=== PATIENT | female | born 1990 | race Caucasian/White ===

== ENCOUNTER 2024-09-18 00:13 | Emergency (ER) | payer MEDICAID ==
[2024-09-18] MEDS ORDERED: Adenocard IV 6 MG/2 ML IV ONE (00:31)
[2024-09-18 00:33] VITALS: TEMP 98.2
[2024-09-18] MEDS ORDERED: Sodium Chloride 0.9% 1000 ML 1,000 ML ONE (00:37)
[2024-09-18] MEDS: Sodium Chloride 0.9% 1000 ML 1,000 ML IV SCH (01:04)
[2024-09-18 01:13] LABS: Absolute Neutrophil Ct (ANC) 7.77 x10^3/uL (1.56-6.13); BASOPHIL % 0.9 % (0.1-1.2); Basophil (Absolute #) 0.12 x10^3/uL (0.01-0.08); Eosinophil % 4.3 % (0.7-5.8); Eosinophil (Absolute #) 0.58 x10^3/uL (0.04-0.36); Hematocrit 39.8 % (34.1-44.9); Hemoglobin 12.9 g/dL (11.2-15.7); IMMATURE GRAN # 0.04 x10^3u/L (0.001-0.031); IMMATURE GRAN % 0.3 % (0.001-0.429); Lymphocyte (Absolute #) 3.84 x10^3/uL (1.18-3.74); Lymphocytes % 28.4 % (19.3-51.7); Mean Cell Volume 87.5 fL (79.4-94.8); Mean Corpuscular Hemoglobin 28.4 pg (25.6-32.2); Mean Corpuscular Hgb Concent. 32.4 g/dL (32.2-35.5); Mean Platelet Volume 9.1 fL (9.4-12.3); Monocyte (Absolute #) 1.19 x10^3/uL (0.24-0.86); Monocytes % 8.8 % (4.7-12.5); Neutrophil % 57.3 % (34.0-71.1); Platelet Count 502 x10^3/uL (182-369); Red Blood Count 4.55 x10^6/uL (3.93-5.22); Red Cell Distribution Width 13.5 % (11.7-14.4); White Blood Count 13.5 x10^3/uL (3.98-10.04)
--- NOTE | 2024-09-18 01:34 | ERPHSYRPT ---
- History of Present Illness Time Seen by Provider: 09/18/24 00:25 Source: patient, family Exam Limitations: no limitations Patient Subjective Stated Complaint: C/O SVT Triage Nursing Assessment: Patient brought back to ER in a W/C. She is alert and oriented. NO SOB. Skin tone normal. Physician History: This is a 34-year-old white female patient who was brought back to the emergency department in a wheelchair. Patient arrives to the emergency department by private vehicle secondary to rapid palpitations. Patient has a history of SVT and it feels similar to her prior episodes. Patient takes verapamil 180 mg sust ained-release medication. However, she forgot to take her dose earlier today. This means that she last took her medications nearly 48 hours ago. The onset of symptoms came on relatively rapidly about 30 minutes prior to arrival. Once she sense rapid heart rate, she then took her medication. She usually takes her medication in the morning. Patient denies chest pain and she denies shortness of breath. Patient is not taking any new medications. Patient moved back to this area approximately 6 months ago and she sees a nurse practitioner as her primary care provider in [facility]. 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 The patient states she has not had an SVT breakthrough in at ast 3 years since she started on the verapamil. Timing/Duration: today Activities at Onset: none Severity of Pain-Max: none Severity of Pain-Current: none Nitro Today/Relief: no nitro taken today Aspirin Treatment Today: no aspirin today Associated Symptoms: No shortness of breath, No chest pain Prior Chest Pain/Cardiac Workup: no prior cardiac workup Allergies/Adverse Reactions: latex Adverse Reaction (Mild, Verified 09/18/24 00:21) Home Medications: Verapamil HCl Sr [Isoptin Sr] 180 mg DAILY 04/14/14 [History] Hx Tetanus, Diphtheria Vaccination/Date Given: Yes Hx Influenza Vaccination/Date Given: No Hx Pneumococcal Vaccination/Date Given: No Immunizations Up to Date: Yes Travel Risk - International Travel Have you traveled outside of the country in past 3 weeks: No - Emerging Infectious Disease Are you exhibiting symptoms associated with any current EIDs: No - Review of Systems Constitutional: No Symptoms Eyes: No Symptoms Ears, Nose, & Throat: No Symptoms Respiratory: No Symptoms Cardiac: Palpitations Abdominal/Gastrointestinal: No Symptoms Genitourinary Symptoms: No Symptoms Musculoskeletal: No Symptoms Skin: No Symptoms Neurological: No Symptoms Psychological: No Symptoms Endocrine: No Symptoms Hematologic/Lymphatic: No Symptoms Immunological/Allergic: No Symptoms All Other Systems: Reviewed and Negative - Past Medical History Pertinent Past Medical History: Yes Cardiac History: Arrhythmia Musculoskeletal History: Other Other Medical History: PSVP, SVT - Past Surgical History Past Surgical History: Yes Musculoskeletal: Orthopedic Surgery, Other Other Surgical History: muscle, joint surgeries - Female History Hx Last Menstrual Period: 1 month ago Hx Now: No - Social History Smoking Status: Never smoker Exposure to second hand smoke: No Drug Use: none Patient Lives Alone: No - Social Determinants of Health Will the patient participate in the screening: Declined to provide - Nursing Vital Signs Nursing Vital Signs: Initial Vital Signs O2 Sat by Pulse Oximetry 97 09/18/24 00:23 Pain Scale Pain Intensity 0 - Physical Exam General Appearance: mild distress, alert, anxiety Eye Exam: PERRL/EOMI, eyes nml inspection Ears, Nose, Throat Exam: normal ENT inspection, moist mucous membranes Neck Exam: normal inspection, non-tender, supple, full range of motion Respiratory Exam: normal breath sounds, lungs clear, airway intact, No chest tenderness, No respiratory distress Cardiovascular Exam: tachycardia Gastrointestinal/Abdomen Exam: soft, normal bowel sounds, No tenderness Pelvic Exam: not done Rectal Exam: not done Back Exam: normal inspection, normal range of motion, No CVA tenderness, No vertebral tenderness Extremity Exam: normal range of motion, pelvis stable Neurologic Exam: alert, oriented x 3, cooperative, crusher II-XII nml as tested, sen sation nml Skin Exam: normal color, warm, dry Lymphatic Exam: No adenopathy SpO2 Interpretation: normal SpO2: 99 O2 Delivery: Room Air - Course Nursing assessment & vital signs reviewed: Yes EKG Interpreted by Me: RATE (250), SVT, NORMAL INTERVALS, NORMAL QRS, Other (No acute ischemic changes on today's twelve-lead EKG. QTc is 412) Ordered Tests: Active Orders 24 hr Category Date Time Status Pipe [employer] STAT Care 09/18/24 01:00 Active EKG-ER Only STAT Care 09/18/24 01:00 Active IV Insertion STAT Care 09/18/24 01:00 Active CBC W DIFF Stat Lab 09/18/24 01:00 Completed CMP Stat Lab 09/18/24 01:00 Completed MAGNESIUM Stat Lab 09/18/24 01:00 Completed NT PRO BNPII Stat Lab 09/18/24 01:00 Completed TROPONIN Q4H Lab 09/18/24 01:00 Completed TROPONIN Q4H Lab 09/18/24 05:00 Ordered TROPONIN Q4H Lab 09/18/24 09:00 Ordered UA W/RFX UR CULTURE Stat Lab 09/18/24 01:00 Ordered Medication Summary Generic Name Dose Route Start Last Admin Trade Name Freq PRN Reason Stop Dose Admin Sodium Chloride 1,000 mls @ 100 mls/hr 09/18/24 01:00 09/18/24 01:04 Sodium Chloride 0.9% 1000 Ml IV 10/18/24 00:59 Not Given .Q10H FCO Sodium Chloride 250 mls @ 250 mls/hr 09/18/24 03:15 Sodium Chloride 0.9% 250 Ml IV 09/18/24 04:14 .Q1H FCO Discontinued Medications Generic Name Dose Route Start Last Admin Trade Name Freq PRN Reason Stop Dose Admin Adenosine Confirm 09/18/24 00:31 Adenosine 6 Mg/2 Ml Vial Administered 09/18/24 00:32 Dose 6 mg IV .STK-MED ONE Sodium Chloride Confirm 09/18/24 00:37 Sodium Chloride 0.9% 1000 Ml Administered 09/18/24 00:38 Dose 1,000 mls @ ud .ROUTE .STK-MED ONE Lab/Rad Data: Laboratory Result Diagrams 09/18/24 01:00 09/18/24 01:00 Laboratory Results 09/18/24 09/18/24 Range/Units 01:00 01:00 WBC 13.5 H (3.98-10.04) x10^3/uL RBC 4.55 (3.93-5.22) x10^6/uL Hgb 12.9 (11.2-15.7) g/dL Hct 39.8 (34.1-44.9) % MCV 87.5 (79.4-94.8) fL MCH 28.4 (25.6-32.2) pg MCHC 32.4 (32.2-35.5) g/dL RDW 13.5 (11.7-14.4) % Plt Count 502 H (182-369) x10^3/uL MPV 9.1 L (9.4-12.3) fL Gran % 57.3 (34.0-71.1) % Immature Gran % (Auto) 0.3 (0.001-0.429) % Nucleat RBC Rel Count 0.0 (0.00-0.2) % Eos # (Auto) 0.58 H (0.04-0.36) x10^3/uL Immature Gran # (Auto) 0.04 H (0.001-0.031) x10^3u/L Absolute Lymphs (auto) 3.84 H (1.18-3.74) x10^3/uL Absolute Monos (auto) 1.19 H (0.24-0.86) x10^3/uL Absolute Nucleated RBC 0.00 (0.00-0.012) x10^3u/L Lymphocytes % 28.4 (19.3-51.7) % Monocytes % 8.8 (4.7-12.5) % Eosinophils % 4.3 (0.7-5.8) % Basophils % 0.9 (0.1-1.2) % Absolute Granulocytes 7.77 H (1.56-6.13) x10^3/uL Basophils # 0.12 H (0.01-0.08) x10^3/uL Sodium 139 (135-145) mmol/L Potassium 4.5 (3.5-5.1) mmol/L Chloride 111 H (98-107) mmol/L Carbon Dioxide 14 L* (22-30) mmol/L Anion Gap 18.8 H (5-15) MEQ/L BUN 10 (7-17) mg/dL Creatinine 0.29 L (0.52-1.04) mg/dL Estimated GFR 143.8 ML/MIN Glucose 95 (74-106) mg/dL Calcium 9.6 (8.4-10.2) mg/dL Magnesium 2.2 (1.6-2.3) mg/dL Total Bilirubin 0.30 (0.2-1.3) mg/dL AST 23 (14-36) U/L ALT 16 (0-35) U/L Alkaline Phosphatase 91 (38-126) U/L Troponin I < 0.012 (0.000-0.033) ng/mL NT-Pro-B Natriuret Pep 89.2 (<300) pg/mL Serum Total Protein 7.6 (6.3-8.2) g/dL Albumin 4.3 (3.5-5.0) g/dL - Progress Progress: improved, re-examined Air Movement: good Progress Note: 09/18/24 01:40 My medical decision making and the assignment of moderate complexity to this patient's medical issue today is based on review of the patient's past medical history, review of the patient's medication list, review of the patient's drug allergy list, history present illness and physical findings on examination. The workup in this patient includes placement of an intravenous line, provide the patient with adenosine 6 mg intravenously, twelve-lead EKG, CBC, CMP, magnesium level, troponin level, BNP, urinalysis. Differential diagnosis includes but is not limited to medication noncompliance, electrolyte abnormalities, dehydration, urinary tract infection, myocardial infarction, arrhythmia 09/18/24 01:41 I interpreted the patient's repeat twelve-lead EKG performed on 09/18/2024 at 0039 this is after 6 mg of intravenous adenosine. Heart rate is 133 bpm and is now sinus tachycardia with no evidence of acute ischemia. The QTc is 416. 09/18/24 03:39 I interpreted the laboratory data results that have returned. The urinalysis is still pending. The patient states she is feeling much better. Her heart rate is still 106 on the monitor it is now sinus tachycardia. The patient asked the nurse to remove the IV line. She is ready to go home. She realizes that the workup is not complete meaning, the urinalysis is still pending. In addition, I wanted to repeat a twelve-lead EKG at 4 AM and repeat the troponin level at 4 AM. However, the patient does not want to stay. She will sign AGAINST MEDICAL ADVICE form. She is aware that there could be emergent, critical findings on the remainder of the workup. We discussed the risk benefits and alternatives and she desires to go home Blood Culture(s) Obtained: No Antibiotics given: No Counseled pt/family regarding: lab results, diagnosis Medical Desision Making - Independent Historian Additional History obtained from: Mother - Diagnostic Testing Diagnostic test were ordered, analyzed, and reviewed by me: Yes - Risk of complications Low Risk: Low risk of morbidity from additional dx testing or treatment - Departure Departure Disposition: AMA Clinical Impression: SVT (supraventricular tachycardia) Condition: Stable Critical Care Time: Yes Critical Care Time(excluding separately billable procedures): Critical 30-74 mins (45) Referrals: ZEENAT GEORGE MD [Primary Care Provider] - Follow up/PCP as directed
[2024-09-18 02:11] VITALS: BP 110/56
[2024-09-18 02:38] LABS: ALBUMIN 4.3 g/dL (3.5-5.0); ALKALINE PHOSPHATASE 91 U/L (38-126); ANION GAP 18.8 MEQ/L (5-15); BLOOD UREA NITROGEN 10 mg/dL (7-17); CHLORIDE 111 mmol/L (98-107); Calcium 9.6 mg/dL (8.4-10.2); Creatinine 1 0.29 mg/dL (0.52-1.04); EST GLOMERULAR FILTRATION RATE 143.8 ML/MIN; Glucose 95 mg/dL (74-106); MAGNESIUM 2.2 mg/dL (1.6-2.3); Potassium 4.5 mmol/L (3.5-5.1); SGOT/AST 23 U/L (14-36); SGPT/ALT 16 U/L (0-35); SODIUM 139 mmol/L (135-145); Total Protein 7.6 g/dL (6.3-8.2)
[2024-09-18 02:49] LABS: NT PRO BNPII 89.2 pg/mL (<300)
[2024-09-18 03:02] LABS: Carbon Dioxide 14 mmol/L (22-30)
[2024-09-18 03:03] LABS: TROPONIN < 0.012 ng/mL (0.000-0.033)
[2024-09-18 03:42] VITALS: O2SAT 99
[2024-09-18 03:47] VITALS: PULSE 105; RESP 18
[2024-09-18 03:52] LABS: Appearance Clear (Clear); Bacteria None Seen /HPF (None Seen); Bilirubin Negative (Negative); Blood Negative (Negative); Epithelial Cells None Seen /HPF (None Seen); Glucose, Urine Negative (Negative); Hyaline Casts NONE SEEN /LPF (0-2); Ketones Negative (Negative); Leukocyte Esterase Negative (Negative); Nitrite Negative (Negative); Protein,Urine Dip Negative (Negative); RBC 0-2 /HPF (0-5); Specific Gravity <=1.005 (1.005-1.030); Urobilinogen 0.2 mg/dL (0.2); WBC 0-2 /HPF (0-5)
[2024-09-18] MEDS: Sodium Chloride 0.9% 250 ML 250 ML IV SCH (03:53)
== END 2024-09-18 03:45 | disposition left against medical advice (07) ==
LOC: ED 00:13
DX: I47.10 Supraventricular tachycardia, unspecified (principal); Z79.899 Other long term (current) drug therapy
CPT/HCPCS: 36415; 80053; 81001; 83735; 83880; 84484; 85025; 93005; 93041; 99284; 99291; J0153